=== PATIENT | female | born 1980 | race Caucasian/White ===

== ENCOUNTER 2018-07-09 10:02 | Outpatient (CLI) | payer BC, SELFPAY ==
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
== END 2018-07-09 10:22 ==
PROVIDERS: PCP Internal Medicine; Visit Provider Physician Assistant
DX: M79.672 Pain in left foot (principal); Z98.890 Other specified postprocedural states
CPT/HCPCS: 73630

== ENCOUNTER 2019-03-24 22:23 | Emergency (ER) | payer OTHER, BC, SELFPAY ==
[2019-03-24 22:35] VITALS: BP 121/81; PULSE 89; RESP 18; TEMP 36.4; O2SAT 98
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
[2019-03-24] MEDS: Ibuprofen 600 MG TAB PO (22:50)
[2019-03-24] MEDS: Cyclobenzaprine 10 MG TAB (22:51)
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
[2019-03-25] MEDS: Cyclobenzaprine 10 MG TAB PO (00:14)
== END 2019-03-25 02:34 | disposition home or self-care (01) ==
PROVIDERS: Emergency Provider Emergency Medicine; PCP Family Medicine
DX: S16.1XXA Strain of muscle, fascia and tendon at neck level, initial encounter (principal); S40.012A Contusion of left shoulder, initial encounter; V43.52XA Car driver injured in collision with other type car in traffic accident, initial encounter
CPT/HCPCS: 99284; 70450; 72125; 73030; L0172

== ENCOUNTER 2022-06-13 11:21 | Outpatient (CLI) | payer MEDICAID, SELFPAY ==
--- NOTE | 2022-06-13 11:15 | DI.RAD_ITS ---
Exam(s) XR SHOULDER RT COMPLETE 2+V EXAM: XR SHOULDER RT COMPLETE 2+V CLINICAL HISTORY: right shoulder pain. TECHNIQUE: 2D digital imaging was performed of the right shoulder. Two images were obtained. AP an d axillary views were obtained. COMPARISON: CR XR shoulder RT complete 2+V from 03/24/2019 FINDINGS: BONES: No acute fracture is present. No bony destructive lesion is seen. JOINTS: No dislocation present. SOFT TISSUE: Normal. IMPRESSION: Unremarkable radiographs of the right shoulder. DATA REPOSITORY: RADIATION DOSE DELIVERED:
== END 2022-06-13 11:22 | disposition home or self-care (01) ==
LOC: DIORS 11:22
PROVIDERS: PCP Family Medicine; Referring Provider Family Medicine; Visit Provider Student in an Organized Health Care Education/Training Program
DX: M25.511 Pain in right shoulder (principal)
CPT/HCPCS: 73030

== ENCOUNTER → 2022-07-09 01:46 | Outpatient (CLI) | payer MEDICAID, SELFPAY ==
--- NOTE | 2022-07-09 07:15 | DI.MRI_ITS ---
Exam(s) MR UPPER JOINT RT WO EXAM: MR UPPER JOINT RT WO CLINICAL HISTORY: persistent pain, weakness,slap lesion, s43.431a. TECHNIQUE: Multiplanar multisequence MRI was performed. COMPARISON: Plain films 13 June 2022 FINDINGS: BONES: There is no fracture or contusion pattern. JOINTS:The acromioclavicular joint is normal. The glenohumeral joint is normal. TENDONS: Supraspinatus: Minimal edema distal supraspinatus tendon. No visible tear. Infraspinatus: Unremarkable. Subscapularis: Unremarkable. Teres Minor: Unremarkable. Biceps and Morris: Unremarkable. MUSCLES: Unremarkable. GLENOID LABRUM: Abnormal high signal seen in the superior and anterior labrum SOFT TISSUES: Unremarkable. OTHER: Tiny amount of fluid in subcoracoid bursa.. IMPRESSION: Tear of the glenoid labrum involving the superior and anterior portions. DATA REPOSITORY:
== END ==
PROVIDERS: PCP Family Medicine; Visit Provider Student in an Organized Health Care Education/Training Program
DX: M25.511 Pain in right shoulder; S43.431A Superior glenoid labrum lesion of right shoulder, initial encounter
CPT/HCPCS: 73221

== ENCOUNTER 2023-02-07 06:15 | Day surgery (SDC) | payer MEDICAID, SELFPAY ==
[2023-02-07] VITALS (12 sets, daily range): BP systolic 94–123; BP diastolic 52–83; PULSE 45–78; RESP 10–16; TEMP 36.1–36.8; O2SAT 95–99; BMI 28.2
--- NOTE | 2023-02-07 06:58 | W.ANESPRE ---
General Info Date of Service Date Performed: 02/07/23 Height: 5 ft 7 in Weight: 81.7 kg Body Mass Index (BMI): 28.2 Surgical Procedure: Operation Date: 02/07/23 07:40 Proposed Procedure Side Surgeon p Shoulder Arthroscopy w/Extensive Debridement, Biceps Tenodesis, Subacromial Decompression, Labral Repair, Shoulder Manipulation Right Issac Jimenez MD Meds Allergies and Home Medications Allergies Allergy/AdvReac Type Severity Reaction Status Date / Time sumatriptan [From Imitrex] Allergy Intermediate Swelling/Ed Verified 02/07/23 06:26 ira erythromycin base Allergy Mild rash Verified 02/07/23 06:26 amoxicillin Allergy Unknown Unknown Verified 02/07/23 06:26 Home Medication Medication Instructions Recorded melatonin 3 mg tablet 3 mg PO HS PRN 05/09/22 sertraline 25 mg tablet (Zoloft) 50 mg PO HS 05/09/22 acetaminophen 325 mg capsule 325 mg PO ONCE PRN 08/08/22 (Tylenol) aspirin 81 mg tablet,delayed 81 mg PO DAILY prevent blood clot 02/07/23 release 7 days #7 tabs naproxen 250 mg tablet 250 - 500 mg PO BID PRN #40 tabs 02/07/23 tramadol 50 mg tablet 50 mg PO Q6H PRN PRN severe pain 02/07/23 #12 tabs Current Visit Medications: Current Medications Generic Name Dose Route Start Last Admin Trade Name Freq PRN Reason Stop Dose Admin Ringer's Solution 1,000 mls @ 30 mls/hr 02/07/23 06:00 IV 03/08/23 23:59 INFUSION PALMA Cefazolin Sodium/Dextrose 2 gm in 50 mls @ 100 mls/hr 02/07/23 06:00 Ancef Duplex IVPB 02/07/23 16:00 PREOP PALMA IV Miscellaneous Supplies 1 each 02/07/23 06:00 Iv Access IV 03/08/23 23:59 DIRECTED PALMA Sodium Chloride 0 ml 02/07/23 06:00 Normal Saline Flush 10 Ml Syr IV 03/08/23 23:59 PRN PRN Sodium Chloride 0 ml 02/07/23 06:00 Normal Saline 10 Ml Vial IJ 03/08/23 23:59 DIRECTED PRN Sterile Water 0 ml 02/07/23 06:00 Water,Injection,Sterile 10 Ml Vial IJ 03/08/23 23:59 DIRECTED PRN PFSH Active Problems Active Problems: Problem Status Onset Code Status post left foot surgery Z98.890 History of tobacco use Z87.891 Cough variant asthma J45.991 SLAP lesion of right shoulder S43.431A Bursitis of right shoulder M75.51 Tear of right glenoid labrum S43.431A Adhesive capsulitis of right shoulder M75.01 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, 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 Medical History Medical History Bunion Chronic constipation Headache Surgical History Surgical History H/O excision of mass DOS-07/2021--RIGHT FACIAL SKIN MASS AND ABCESS History of bunionectomy DOS 10/28/17 revision Oct 2018 History of dilation and curettage History of hysterectomy History of local excision of skin lesion DOS 12/2019--R ANTERIOR THIGH Hx of breast reduction, elective DOS 10/2021 S/P cervical disc replacement DOS 04/2019 Tobacco Smoking/Tobacco Use Status: Current every day Tobacco Type: e-cigarettes Alcohol Alcohol Intake: current Alcohol intake frequency: a few times a month Substance Use Substance use: Daily Details: THC gummies HS Vital Signs and Lab Results Vital Signs Most Recent Vital Signs in EMR: Most Recent Vital Signs Temp Pulse Resp BP Pulse Ox 36.5 C 57 L 16 96/71 L 99 02/07/23 06:27 02/07/23 06:27 02/07/23 06:27 02/07/23 06:27 02/07/23 06:27 Lab Results Blood Type / Crossmatch: No Data to Display Complete Blood Count: No Data to Display Complete Metabolic Panel: No Data to Display Liver Function Panel: No Data to Display Coagulation Panel: No Data to Display Cardiac Panel: No Data to Display Arterial Blood Gas: No Data to Display Venous Blood Gas: No Data to Display Pancreas Panel: No Data to Display Thyroid Panel: No Data to Display Infectious Disease: No Data to Display Blood Cultures: No Data to Display Toxicology Panel: No Data to Display Panel: No Data to Display Anesthesia Assessment and Plan Anesthesia History Personal History: No History of Anesthesia Complications Family History: No Family History of Anesthesia Complications Exercise Tolerance Exercise Tolerance: Metabolic Equivalents>4 Pertinent Negatives Pertinent Negatives: No Symptoms of GERD, No Major Cardiovascular Symptoms or Complaints and No Major Pulmonary Symptoms or Complaints Cardiac & Pulmonary Exam Cardiac Exam: Normal S1/S2 Heart Sounds Pulmonary Exam: Clear Bilateral Breath Sounds Implantable Cardiac Device Does patient have a Pacemaker or an ICD?: No Airway Exam Known Difficult Airway: No Mallampati Class: 2 Mouth Opening: Normal (> 3cm) Thyromental Distance: Greater than 3 cm Neck Range of Motion: Full ROM Neck Circumference: Normal Teeth Condition: Normal Dentition ASA Classification ASA Score: ASA 2 Emergency Case?: No NPO Status NPO Status: NPO Clears >2 hours, Solids >8 hours Status Status: History of Hysterectomy Anesthesia Plan Resuscitation Status: Full Code Anesthesia Technique: General Anesthesia Airway Planned: Endotracheal Tube Pain Management: Surgeon and patient request nerve block Monitors Used: Standard Monitors and SedLine
--- NOTE | 2023-02-07 07:03 | W.PM.DSUDISC ---
Date of service: 02/07/23 Time of Service: 11:30 Discharge Plan Disposition Patient Disposition: Home Discharge Details Attending Provider: Issac Jimenez Primary Care Provider: Carlos Calero Home Meds and New Rx's Prescriptions: New aspirin 81 mg tablet,delayed release (DR/EC) 81 mg PO DAILY 7 Days Qty: 7 0RF tramadol 50 mg tablet 50 mg PO Q6H PRN PRN (Reason: severe pain) Qty: 12 0RF naproxen 250 mg tablet 250 - 500 mg PO BID PRNQty: 40 0RF Rx Instructions: take with a meal Continued acetaminophen [Tylenol] 325 mg capsule 325 mg PO ONCE PRN melatonin 3 mg tablet 3 mg PO HS PRN sertraline [Zoloft] 25 mg tablet 50 mg PO HS Discharge Instructions Additional Instructions: Surgery: Right shoulder arthroscopy with anterior labral repair, biceps tenodesis, extensive debridement, subacromial decompression, and manipulation under anesthesia. Activity: For 6 weeks, you should keep your arm at your side in a neutral position at all times except for physical therapy. Do not try to lift or raise your arm using your own muscles. You should use the sling whenever you are out of the house. You may have to adjust the abduction pillow or remove it for comfort. At home it is best to remove the sling and rest the arm on a pillow at your side or support the operative side with your other hand. You may allow the arm to dangle at your side. A physical therapy prescription will be sent electronically to begin in about 3 weeks. Postoperative protocol/ ROM restrictions: Weeks 0-3: 0 degrees external rotation Weeks 3-6: Maximum 30 degrees external rotation and 90 degrees forward elevation Weeks 6-8: Maximum 45 degrees external rotation and 120 degrees forward elevation Weeks 8+: Advance to full range of motion Weeks 10-12+: Start light rotator cuff strengthening and dynamic scapular stabilization Prescriptions: Aspirin 81 mg take 1 daily to prevent a blood clot for 7 days Naproxen 250 mg take 1-2 every 12 hours with a meal as needed for moderate pain Tramadol 50 mg take 1 every 6-8 hours as needed for severe pain You may use [id number] Tylenol (acetaminophen) as needed for mild pain. These pain medications may be taken all at once or in different combinations as needed. Also, recommend Colace (docusate) as a stool softener as surgery and pain medicine cause constipation. You may try [id number] diphenhydramine (Benadryl) 25-50 mg nightly as a sleep aid Dressings: Remove shoulder bandage after 3 days. Leave the sticky Steri-Strips in place until they fall off or remove them after you shower. Cover the incisions with Band-Aids or leave them open to air. You may shower after 5 days. Follow-up: 10-[address] Jimenez You may take off the leg compression stockings this evening at home. You may also leave them on a few days longer if you have a history of leg swelling or edema. Let us know right away if you develop any redness, drainage, fevers, chest pain, or trouble breathing. Do not drink alcohol or drive for at least 24 hours after anesthesia. Please call the office during business hours with any questions or concerns. Discharge Orders Discharge Orders: Discharge Order (Routine); Ordered 02/07/23 Ordered By: Issca Jimenez DS: Diagnosis Discharge Diagnosis (1) SLAP lesion of right shoulder: Status: Acute (2) Bursitis of right shoulder: Status: Acute (3) Tear of right glenoid labrum: Status: Acute (4) Adhesive capsulitis of right shoulder: Status: Acute
--- NOTE | 2023-02-07 07:08 | ROE_ITS ---
Date of service: 02/07/23 Time of Service: 07:30 Operative Note Operative Note DATE OF PROCEDURE: 02/07/23 PRE-OP DIAGNOSIS: Right: 1. SLAP tear 2. LHB tendinopathy 3. Bursitis 4. Anterior labral tear 5. Adhesive capsulitis POST-OP DIAGNOSIS: same PROCEDURE: Right: 1. Lbral repair, CPT 2 #42518. This involved a limited suture anchor repair of the anterior labrum 2. Arthroscopic biceps tenodesis, CPT# 11152. This involved arthroscopically suturing and reattaching the long head of the biceps tendon to the proximal humerus at the superior margin of the bicipital groove with a screw at the correct tension. 3. Extensive debridement, CPT# 79752. This involved using arthroscopic hand instruments, power instruments, and radiofrequency instruments to release the long head of the biceps tendon and debride areas of labral tearing, synovitis, release rotator interval adhesions, release the biceps tendon from the superior capsule, perform an anterior capsular release including the [facility] L, and a limited posterior capsule release, and debride a small amount of chondromalacia about the repair aspect of the biceps groove within the glenohumeral joint anteriorly, superiorly and posteriorly. 4. Subacromial decompression, CPT# 12337. This involved using arthroscopic power instruments and a radiofrequency wand to complete a bursectomy. 5. Manipulation under anesthesia, CPT #73546. This involved a manipulation successfully restoring full range of motion prior to arthroscopic surgery The assistant baseball coach was medically required in order to help assist in techniques above, which require positioning the arm, holding the arthroscope, and manipulating multiple instruments and sutures at the same time. This cannot be done without the help of an experienced assistant baseball coach. SURGEON: Issac Jimenez EDGER LINER: More Grant ANESTHESIA TYPE: General LMA/ETT and Primary Nerve Block Refer to Anesthesia Record ESTIMATED BLOOD LOSS: 10 PATHOLOGY: none sent COMPLICATIONS: None Patient was transported to: PACU Patient's condition: stable Implants: Arthrex: 4.75mm SwiveLocks knotless x1 Indications: The patient was diagnosed with the above conditions and appropriately indicated for surgical intervention. Please see complete medical record for details. Findings: Exam under anesthesia: Significant stiffness about 10 degrees external rotation at the side and 90 degrees forward elevation. Internal rotation about 40 degrees at 90 degrees abduction. Glenohumeral joint: Significant synovitis, rotator interval anterior capsular adhesions between anterior labrum, [facility] L, long head biceps tendon adhesed to the superior capsule, intact subscapularis, minimal undersurface articular rotator cuff fraying, and unstable biceps anchor SLAP tear, and limited anterior at about the equator small anterior labral tear. Subacromial space: Significant hemorrhagic bursitis. No obvious bursal structural rotator cuff tear. No significant subacromial bone spur. Procedure Description: In the operating room, general anesthesia was induced. Bilateral shoulders were examined. The correct patient, procedure, and side of the procedure were all verified prior to beginning. The right shoulder demonstrated significant stiffness so manipulation under anesthesia was done while the patient was supine. Using a short lever arm and gentle steady pressure alternate between forward elevation external rotation side excellent releases were obtained readily restoring full symmetrical range of motion with forward elevation about 145 degrees, external rotation 75 degrees, and internal rotation past 45 degrees. There was no significant mechanical symptoms or instability after manipulation restoring full motion. The patient was positioned in the beachchair position. All bony prominences were well-padded. Preoperative antibiotics were administered. The shoulder was prepped and draped in the usual sterile fashion. Starting through the posterior portal a standard complete diagnostic arthroscopy was performed of the glenohumeral joint including inspection of the long head of the biceps, anterior and superior labrum, subscapularis tendon, supraspinatus and infraspinatus tendons, and axillary recess. The glenoid and humeral head cartilage as well as the posterior labrum were inspected from an anterior viewing portal. Significant findings and interventions noted above. Of note, the significant rotator interval adhesive capsulitis pathology was addressed with the above detailed debridement. Carefully the biceps tendon was teased with arthroscopic scissors off its adherent to the superior capsule. An all-arthroscopic suprapectoral biceps tenodesis was performed through an anterior portal using a Loop N Tack method with a SutureTape FiberLink cinched around and through the tendon. The biceps was tenotomized from the labrum and fixated with a suture anchor at the superior margin of the bicipital groove. The knotless extra repair stitch was then passed around the biceps tendon and used to achieve additional fixation security. The anterior labrum was expected. There was a focal defect at the mid equator. The bone labral margin was prepared using an elevator. The anterior capsule had been debrided and [facility] L released with arthroscopic scissors. Care was taken to pass a suture tape FiberLink around only the anterior labrum but not capsule in order to prevent stiffness. The eccentric drill guide and drill were then used to localize placement appropriately on the glenoid margin with the repair suture loaded and push lock anchor successfully deployed. The repair was inspected and stable through wide external rotation with a tiny anterior capsular to labrum remnant released again to ensure labral repair without restricting motion in this setting. The SLAP tear was debrided to a stable margin. There was no additional labrum to repair. Starting through the posterior portal, the arthroscope was directed into the subacromial space. A lateral 50 yard line lateral portal was created. A combination of power instruments and a radiofrequency ablator were used to debride bursitis anteriorly, posteriorly, and laterally as well as expose the undersurface of the acromion. The coracoacromial ligament was partially released. The bursectomy was completed viewing laterally and working from posteriorly and the rotator cuff was difficult to view given significant hemorrhagic injection but did not demonstrate any notable structural pathology requiring repair. The shoulder was drained of arthroscopic fluid. All portal sites were copiously irrigated. These incisions were closed using 3-0 Monocryl in a buried fashion and then covered with Mastisol, Steri-Strips, Xeroform, dry gauze, and ABDs. The dressings were covered and secured with Medipore tape. The operative extremity was placed into a sling for immobilization. The patient awoke from anesthesia without complication and was transferred to the recovery room in a stable condition.
[2023-02-07] MEDS: Lactated Ringers 1,000 ML 30 ML IV (07:20)
[2023-02-07] MEDS: ceFAZolin 2 GM/50 ML BAG IVPB (08:18)
--- NOTE | 2023-02-07 08:37 | W.ANESNERVE ---
Nerve Block Single Injection Procedure Date and Time Date Performed: 02/07/23 Procedure Start: : Location Where Procedure Performed Procedure Location: Day Surgery Unit Reason Performed: Postoperative Analgesia Requesting Provider: Issac Jimenez Timeout Performed Timeout Performed: Yes Monitoring Used ECG, Blood Pressure, SpO2 and See EMR for corresponding vital signs Sterility Sterility: Hand Hygiene, Surgical Cap, Surgical Mask, Sterile Gloves and Chlorhexidine Sedation Given During Procedure Sedation Given (Indicate Dose Given): Versed IV Dose:: 2mg and Precedex IV Dose:: 4mcg Patient Mental Status Patient Mental Status: Sedate with meaningful communication Nerve Block 1st Nerve Block: Laterality: Right Block Type: Interscalene Ultrasound Image Saved?: Yes Needle / Catheter Used: 80mm SonoPlex II Local Anesthetic Bolus (Indicate Dose Given): Lidocaine used for local infiltration of skin, Injected in 3-5ml increments after negative blood aspiration, Bupivacaine 0.5% Dose:: 15mL and Exparel Dose:: 10mL Additives (Indicate Dose Given): None Ultrasound: Sterile probe cover and gel used Nerve Stimulator: Supplement to Ultrasound use and No twitch or parasthesia noted < 0.5 mA Paresthesia: None Post Procedure Pain score (0-10): 0 Procedure Tolerated: No Complications Procedure Outcome: Successful Procedure Comment: Time out completed in room and all questions answered. Pre-procedural sedation provided. Performed By: Daniel Burns Other (not listed above): Taco Tovar CRNA, then secondary to approachMartha CRNA completed
[2023-02-07] MEDS: EPINEPHrine 30 MG/30 ML VIAL (09:21)
[2023-02-07] MEDS: Ketorolac 15 MG/ML VIAL IVP (10:29)
--- NOTE | 2023-02-07 10:32 | W.ANESPOSTOP ---
Postoperative Evaluation Date, Time and Location Date Performed: 02/07/23 Time Performed: 10:32 Patient Location: PACU Vital Signs Most Recent Imported Vital Signs: Most Recent Vital Signs Temp Pulse Resp BP Pulse Ox 36.4 C L 49 L 12 106/59 L 97 02/07/23 10:17 02/07/23 10:17 02/07/23 10:17 02/07/23 10:17 02/07/23 10:17 Pain Score Most Recent Pain Score: Most Recent Pain Score Pain Level 0 02/07/23 07:34 Assessment Mental Status: Awake (Alert & Oriented to Patient Baseline) Airway and Respiratory Function: Patent airway with normal (patient baseline) respiratory exam Cardiovascular Function: Hemodynamically Stable Hydration Status: Adequately Hydrated Nausea & Vomiting: No Nausea or Vomiting Pain: Pt. Denies Any Pain Peripheral Nerve Block: Regional nerve block not resolved at time of post operative discharge
== END 2023-02-07 12:08 | disposition home or self-care (01) ==
PROVIDERS: PCP Family Medicine; Visit Provider Student in an Organized Health Care Education/Training Program
PROC: (CPT 29805; principal; 2023-02-07 07:30)
DX: S43.431A Superior glenoid labrum lesion of right shoulder, initial encounter (principal); M75.51 Bursitis of right shoulder; M75.01 Adhesive capsulitis of right shoulder; M75.21 Bicipital tendinitis, right shoulder; X58.XXXA Exposure to other specified factors, initial encounter
CPT/HCPCS: 29806; 29828; 29826; 29823; 76942; J0690; J1100; J1885; J2250; J2370; J2405; J2704